=== PATIENT | female | born 1990 | race Two or more races ===

== ENCOUNTER 2016-09-19 22:26 | Inpatient (IN) | payer OTHER ==
[~2016-09-19] VITALS: Ht 162.6 cm; Wt 77.1 kg
[2016-09-19] MEDS ORDERED: NKM (22:43)
[2016-09-19 22:45] VITALS: BP 146/92
[2016-09-19] MEDS ORDERED: HYDROmorphone 1mg/ml Carpuject IVP ONE (23:15)
[2016-09-19 23:30] LABS: MEAN CORPUSCULAR HEMOGLOBIN 31.6 PG (27.0-31.0); MEAN CORPUSCULAR VOLUME 90 FL (80-99); MEAN PLATELET VOLUME 6.7 FL (6.5-10.1); PLATELET COUNT 272 K/UL (150-450); RED BLOOD COUNT 4.74 M/UL (4.20-5.40); RED CELL DISTRIBUTION WIDTH 11.6 % (11.6-14.8); WHITE BLOOD COUNT 21.4 K/UL (4.8-10.8)
--- NOTE | 2016-09-19 23:32 | Emergency Room Report ---
History of Present Illness General Chief Complaint: Abdominal Pain Source: Patient Present Illness HPI Is a 26-year-old female with no past medical history patient present with chief complaint of epigastric arrival quadrant pain. Onset today. Pain is 8/10. Going to her back. Nausea vomiting. No diarrhea. No fever or chills. Denied this problem before. Since giving in November she's been having mid thoracic back pain however his been on and off. No urinary complaint. Allergies: Coded Allergies: No Known Allergies (Unverified , 09/19/16) Patient History Past Medical History: see triage record, old chart reviewed Past Surgical History: , other Pertinent Family History: none Social History: Denies: smoking Last Menstrual Period: 09/18/16 Now: No : 1 Para: 2 Immunizations: other Reviewed Nursing Documentation: PMH: Agreed, PSxH: Agreed Nursing Documentation-PM Past Medical History: No Stated History Review of Systems Eye: Denies: blurred vision, eye pain ENT: Denies: ear pain, nose congestion, throat swelling Respiratory: Denies: cough, shortness of breath Cardiovascular: Denies: chest pain, palpitations Gastrointestinal: Reports: abdominal pain, Denies: diarrhea, nausea, vomiting Musculoskeletal: Denies: back pain, joint pain Skin: Denies: rash Neurological: Denies: headache, numbness Endocrine: Denies: increased thirst, increased urine Hematologic/Lymphatic: Denies: easy bruising All Other Systems: negative except mentioned in HPI Physical Exam Vital Signs Date Time Temp Pulse Resp B/P Pulse Ox O2 Delivery O2 Flow Rate FiO2 09/19/16 22:39 98.2 94 16 146/92 96 Room Air vitals unremarkable Sp02 EP Interpretation: reviewed, normal General Appearance: well appearing, no apparent distress, alert Head: normocephalic, atraumatic Eyes: bilateral eye EOMI, bilateral eye PERRL ENT: hearing grossly normal, normal pharynx Neck: full range of motion, supple, no meningismus Respiratory: chest non-tender, lungs clear, normal breath sounds Cardiovascular #1: regular rate, rhythm, no murmur Gastrointestinal: normal bowel sounds, no mass, no organomegaly, no bruit, non- distended, tenderness - epigastric Musculoskeletal: back normal, gait/station normal, normal range of motion Psychiatric: mood/affect normal Skin: warm/dry Medical Decision Making Diagnostic Impression: Primary Impression: Appendicitis, acute Qualified Codes: K35.80 - Unspecified acute appendicitis Additional Impressions: Hepatic steatosis History of induced ER Course Patient with epigastric arrival quadrant pain. She does have a white count and elevation of LFTs. She may have had biliary colic/cholecystitis. Her urine was negative at 3 minutes but turn positive at 5 minutes. Will check quantitative hCG. Patient was on her way to CT in a call to have her come back. Explained the situation to her. She told me that she was about 4 weeks and took the pill few days ago. She was bleeding heavily but not much now. This probably explain the positive urine test. On recheck, she has no right lower quadrant pain or suprapubic pain. I will hold off on the CT scan and order ultrasound instead. Ultrasound was unremarkable evidence of fatty liver. Because of her white count I went ahead and order CT scan. Her hCG level is 50. This is probably dropping from her . CT scan showed acute appendicitis. Per radiologist , she has a very elongated appendix and it's almost the level of the kidney. This may explain the right upper quadrant pain. Antibiotic started. Surgeon consulted. Patient admitted to Dr. Baig based on insurance. Laboratory Tests Test 09/19/16 23:10 09/19/16 23:20 09/20/16 00:02 Urine Color Pale yellow Urine Appearance Slightly cloudy Urine pH 9 (4.5-8.0) Urine Specific [place] 1.015 (1.005-1.035) Urine Protein Negative (NEGATIVE) Urine Glucose (UA) Negative (NEGATIVE) Urine Ketones 1+ (NEGATIVE) H Urine Occult Blood 4+ (NEGATIVE) H Urine Nitrite Negative (NEGATIVE) Urine Bilirubin Negative (NEGATIVE) Urine Urobilinogen Normal MG/DL (0.0-1.0) Urine Leukocyte Esterase Negative (NEGATIVE) Urine RBC 5-10 /HPF (0 - 2) H Urine WBC 0-2 /HPF (0 - 2) Urine Squamous Epithelial Cells Moderate /LPF (NONE/OCC) H Urine Amorphous Sediment Many /LPF (NONE) H Urine Bacteria Few /HPF (NONE) Urine HCG, Qualitative Negative White Blood Count 21.4 K/UL (4.8-10.8) H Red Blood Count 4.74 M/UL (4.20-5.40) Hemoglobin 15.0 G/DL (12.0-16.0) Hematocrit 42.8 % (37.0-47.0) Mean Corpuscular Volume 90 FL (80-99) Mean Corpuscular Hemoglobin 31.6 PG (27.0-31.0) H Mean Corpuscular Hemoglobin Concent 35.0 G/DL (32.0-36.0) Red Cell Distribution Width 11.6 % (11.6-14.8) Platelet Count 272 K/UL (150-450) Mean Platelet Volume 6.7 FL (6.5-10.1) Neutrophils (%) (Auto) % (45.0-75.0) Lymphocytes (%) (Auto) % (20.0-45.0) Monocytes (%) (Auto) % (1.0-10.0) Eosinophils (%) (Auto) % (0.0-3.0) Basophils (%) (Auto) % (0.0-2.0) Differential Total Cells Counted 100 Neutrophils % (Manual) 89 % (45-75) H Lymphocytes % (Manual) 6 % (20-45) L Monocytes % (Manual) 2 % (1-10) Eosinophils % (Manual) 1 % (0-3) Basophils % (Manual) 0 % (0-2) Band Neutrophils 2 % (0-8) Platelet Estimate Adequate Platelet Morphology Normal Red Blood Cell Morphology Normal Sodium Level 138 mEQ/L (135-145) Potassium Level 3.7 mEQ/L (3.4-4.9) Chloride Level 98 mEQ/L (98-107) Carbon Dioxide Level 21 mEQ/L (20-30) Anion Gap 19 (5-15) H Blood Urea Nitrogen 12 mg/dL (7-23) Creatinine 0.7 mg/dL (0.5-0.9) Estimat Glomerular Filtration Rate > 60 mL/min (>60) Glucose Level 132 mg/dL (74-106) H Calcium Level 9.4 mg/dL (8.6-10.2) Total Bilirubin 1.0 mg/dL (0.0-1.2) Aspartate Amino Transf (AST/SGOT) 81 U/L (5-40) H Alanine Aminotransferase (ALT/SGPT) 92 U/L (3-33) H Alkaline Phosphatase 84 U/L (35-104) Total Protein 8.0 g/dL (6.6-8.7) Albumin 4.4 g/dL (3.5-5.2) Globulin 3.6 g/dL Albumin/Globulin Ratio 1.2 (1.0-2.7) Lipase 29 U/L (< 60) Human Chorionic Gonadotropin, Quant 50 mIU/mL Lab Results Impression labs with leukocytosis CT/MRI/US Diagnostic Results CT/MRI/US Diagnostic Results : Imaging Test Ordered: CT abdomen and pelvis Impression Read by radiologist. Acute appendicitis. No abscess or free air. Marked fatty liver. Abdominal US: Read by smoking pipe coater. Neg Lennon's. GB normal. Fatty liver. Last Vital Signs Date Time Temp Pulse Resp B/P Pulse Ox O2 Delivery O2 Flow Rate FiO2 09/19/16 22:39 98.2 94 16 146/92 96 Room Air Status: improved Disposition: ADMITTED INPATIENT Condition: Serious Referrals: [facility],REFERRING (PCP) SHAY BECKWITH M.D. Sep 19, 2016 23:32
[2016-09-19 23:47] LABS: ALANINE AMINOTRANSFERASE 92 U/L (3-33); ALBUMIN/GLOBULIN RATIO 1.2 (1.0-2.7); ANION GAP 19 (5-15); ASPARTATE AMINO TRANSFERASE 81 U/L (5-40); CALCIUM 9.4 mg/dL (8.6-10.2); CARBON DIOXIDE 21 mEQ/L (20-30); CHLORIDE 98 mEQ/L (98-107); CREATININE 0.7 mg/dL (0.5-0.9); GLOMERULAR FILTRATION RATE > 60 mL/min (>60); HEMOLYSIS 11; LIPASE 29 U/L (< 60); POTASSIUM 3.7 mEQ/L (3.4-4.9); SODIUM 138 mEQ/L (135-145)
[2016-09-19 23:54] LABS: APPEARANCE,URINE SLIGHTLY CLOUDY; KETONES,URINE 1+ (NEGATIVE); LEUKOCYTE ESTERASE ,URINE NEGATIVE (NEGATIVE); NITRITE,URINE NEGATIVE (NEGATIVE); PH,URINE 9 (4.5-8.0); PROTEIN,URINE NEGATIVE (NEGATIVE); UROBILINOGEN,URINE NORMAL MG/DL (0.0-1.0)
[2016-09-20] VITALS (13 sets, daily range): BP systolic 105–143; BP diastolic 57–95
[2016-09-20 00:16] LABS: BACTERIA,URINE FEW /HPF; SQUAMOUS EPITHELIAL CELL,UR MODERATE /LPF (NONE/OCC); WBC,URINE 0-2 /HPF (0 - 2)
[2016-09-20 00:17] LABS: AMORPHOUS SEDIMENT,UR MANY /LPF
[2016-09-20 00:24] LABS: BAND NEUTROPHILS % (MANUAL) 2 % (0-8); BASOPHILS % (MANUAL) 0 % (0-2); EOSINOPHILS % (MANUAL) 1 % (0-3); LYMPHOCYTES % (MANUAL) 6 % (20-45); NEUTROPHILS % (MANUAL) 89 % (45-75); PLATELET ESTIMATE ADEQUATE; PLATELET MORPHOLOGY NORMAL; TOTAL CELLS COUNTED 100
[2016-09-20] MEDS ORDERED: Piperacillin/Tazobactam 3.375 GM in NS 110 ML IVPB ONE (03:15)
[2016-09-20] MEDS ORDERED: Zosyn 3.375gm inj ONE (03:18)
--- NOTE | 2016-09-20 06:56 | General Progress Note ---
Progress Note Progress Note Consult dictated #[id number], pt has acute appendicitis, retrocecal on CT. She also has residua of an induced chemical on 09-13-16. We will proceed with a laparoscopic appendectomy, possible open appendectomy this AM. The nature,risks , and benefits were explained. Mario Rucker MD Sep 20, 2016 06:56
[2016-09-20 07:17] LABS: PROTHROMBIN TIME 10.1 SEC (9.30-11.50)
[2016-09-20] MEDS ORDERED: Bupivacaine w/Epi 0.5% 30ml Vial INJ ONE (08:06)
[2016-09-20] MEDS ORDERED: Bacitracin 50000 Units Vial ONE (08:06)
[2016-09-20] MEDS ORDERED: Propofol 10mg/ml 20ml IV ONE ×2 (08:06→08:30)
[2016-09-20] MEDS ORDERED: Neostigmine 1mg/ml 10ml Inj ONE (08:30)
[2016-09-20] MEDS ORDERED: Zemuron 50mg/5ml Inj IV ONE (08:30)
[2016-09-20] MEDS ORDERED: Midazolam 2mg/2ml Inj ONE (08:30)
[2016-09-20] MEDS ORDERED: LR 1000ml ONE (08:30)
[2016-09-20] MEDS ORDERED: Ketorolac 30mg Inj ONE (08:30)
[2016-09-20] MEDS ORDERED: NS Irrig 2000ml IRRIG ONE ×2 (08:30→08:56)
[2016-09-20] MEDS ORDERED: Sterile Water Irrig 1000ml IRRIG ONE (08:30)
[2016-09-20] MEDS ORDERED: fentaNYL 100 mcg/2 mL IV ONE (08:30)
[2016-09-20] MEDS ORDERED: Glycopyrrolate 0.2mg/ml 1ml Vial ONE (08:30)
--- NOTE | 2016-09-20 08:31 | Pre-Procedure Note/Attestation ---
Pre-Procedure Note/Attestation Complete Prior to Procedure Planned Procedure: not applicable Procedure Narrative: laparoscopic appendectomy, possible open appendectomy Indications for Procedure Pre-Operative Diagnosis: acute appendicitis Attestation I attest that I discussed the nature of the procedure; its benefits; risks and complications; and alternatives (and the risks and benefits of such alternatives ), prior to the procedure, with the patient (or the patient's legal car sales representative). I attest that, if there was a reasonable possibility of needing a blood transfusion, the patient (or the patient's legal car sales representative) was given the [facility] standardized written summary, pursuant to the [place] Blood Safety Act ([place] Health and Safety Code # 1645, as amended). I attest that I re-evaluated the patient just prior to the surgery and that there has been no change in the patient's H&P, except as documented below:none Mario Rucker MD Sep 20, 2016 08:31
[2016-09-20] MEDS ORDERED: LORazepam Inj 2mg/ml 1ml IV PRN (08:45)
[2016-09-20] MEDS ORDERED: Miralax 17gm pkt ORAL PRN (08:45)
[2016-09-20] MEDS ORDERED: Nitroglycerin Subl 0.4mg tab (Bottle Of 25) SL PRN (08:45)
[2016-09-20] MEDS ORDERED: Metoclopramide 10mg/2ml Inj IVP PRN ×2 (08:45→09:15)
[2016-09-20] MEDS ORDERED: Mylanta II UD 30ml ORAL PRN (08:45)
[2016-09-20] MEDS ORDERED: LR 1000ml 1,000 ML IVLG SCH (09:04)
--- NOTE | 2016-09-20 09:04 | Anethesia Preoperative Eval ---
Anesthesia Pre-op PMH/ROS General Date of Evaluation: Sep 20, 2016 Time of Evaluation: 08:15 Anesthesiologist: Nat ASA Score: ASA 2 Mallampati Score Class I : Soft palate, uvula, fauces, pillars visible Class II: Soft palate, uvula, fauces visible Class III: Soft palate, base of uvula visible Class IV: Only hard plate visible Mallampati Classification: Class II Surgeon: Chaim Diagnosis: Acute appendicitis Surgical Procedure: Laparocopic apendectomy Anesthesia History: none Family History: no anesthesia problems Allergies: Coded Allergies: No Known Allergies (Unverified , 09/19/16) Past Medical History Cardiovascular: Denies: CAD, HTN, NC, arrhythmia, other, valve dz Pulmonary: Denies: COPD, DEBBY, asthma, other Gastrointestinal/Genitourinary: Denies: CRI, ESRD, GERD, other Neurologic/Psychiatric: Denies: CVA, TIA, dementia, depression/anxiety, other Endocrine: Denies: DM, hypothyroidism, other, steroids HEENT: Denies: HABEMATOLEL (L), HABEMATOLEL (R), cataract (L), cataract (R), glaucoma, other Hematology/Immune: Denies: DVT, anemia, bleeding disorder, other Musculoskeletal/Integumentary: Denies: DDD, DJD, OA, RA, edema, other Other: other - overweight PMH Narrative: as above admitted for acute abdominal pain N/V PSxH Narrative: C section Anesthesia Pre-op Phys. Exam Physician Exam Last Vital Signs Date Time Temp Pulse Resp B/P Pulse Ox O2 Delivery O2 Flow Rate FiO2 09/20/16 08:00 98.2 100 20 130/71 95 Room Air Constitutional: NAD Neurologic: CN 2-12 intact Cardiovascular: RRR, no M/R/G Respiratory: CTA Gastrointestinal: other - some tenderness Airway Exam Mallampati Score: Class II MO: full Neck: flexible ROM: full Teeth: intact Dentures: no lower, no upper Anesthesia Pre-op A/P Labs Hematology Test 09/19/16 23:20 White Blood Count 21.4 K/UL (4.8-10.8) H Red Blood Count 4.74 M/UL (4.20-5.40) Hemoglobin 15.0 G/DL (12.0-16.0) Hematocrit 42.8 % (37.0-47.0) Mean Corpuscular Volume 90 FL (80-99) Mean Corpuscular Hemoglobin 31.6 PG (27.0-31.0) H Mean Corpuscular Hemoglobin Concent 35.0 G/DL (32.0-36.0) Red Cell Distribution Width 11.6 % (11.6-14.8) Platelet Count 272 K/UL (150-450) Mean Platelet Volume 6.7 FL (6.5-10.1) Neutrophils (%) (Auto) % (45.0-75.0) Lymphocytes (%) (Auto) % (20.0-45.0) Monocytes (%) (Auto) % (1.0-10.0) Eosinophils (%) (Auto) % (0.0-3.0) Basophils (%) (Auto) % (0.0-2.0) Differential Total Cells Counted 100 Neutrophils % (Manual) 89 % (45-75) H Lymphocytes % (Manual) 6 % (20-45) L Monocytes % (Manual) 2 % (1-10) Eosinophils % (Manual) 1 % (0-3) Basophils % (Manual) 0 % (0-2) Band Neutrophils 2 % (0-8) Platelet Estimate Adequate Platelet Morphology Normal Red Blood Cell Morphology Normal Coagulation Test 09/20/16 06:40 Prothrombin Time 10.1 SEC (9.30-11.50) Prothromb Time International Ratio 1.0 (0.9-1.1) Activated Partial Thromboplast Time 28 SEC (23-33) Chemistry Test 09/19/16 23:20 09/20/16 00:02 Sodium Level 138 mEQ/L (135-145) Potassium Level 3.7 mEQ/L (3.4-4.9) Chloride Level 98 mEQ/L (98-107) Carbon Dioxide Level 21 mEQ/L (20-30) Anion Gap 19 (5-15) H Blood Urea Nitrogen 12 mg/dL (7-23) Creatinine 0.7 mg/dL (0.5-0.9) Estimat Glomerular Filtration Rate > 60 mL/min (>60) Glucose Level 132 mg/dL (74-106) H Calcium Level 9.4 mg/dL (8.6-10.2) Total Bilirubin 1.0 mg/dL (0.0-1.2) Aspartate Amino Transf (AST/SGOT) 81 U/L (5-40) H Alanine Aminotransferase (ALT/SGPT) 92 U/L (3-33) H Alkaline Phosphatase 84 U/L (35-104) Total Protein 8.0 g/dL (6.6-8.7) Albumin 4.4 g/dL (3.5-5.2) Globulin 3.6 g/dL Albumin/Globulin Ratio 1.2 (1.0-2.7) Lipase 29 U/L (< 60) Human Chorionic Gonadotropin, Quant 50 mIU/mL Urine Test Test 09/19/16 23:10 Urine HCG, Qualitative Negative Studies Pre-op Studies: EKG - NSR Risk Assessment & Plan Assessment: ASA 2 E Plan: GA with ETT PONV prevention Status Change Before Surgery: No Pre-Antibiotics Drug: Ancef 1 gr Given Within 1 Hr of Incision: Yes Time Given: 08:36 JULIA VICTOR M.D. Sep 20, 2016 09:04
[2016-09-20] MEDS: Heparin 5000 units/ml inj SUBQ SCH ×2 (09:13→21:00)
[2016-09-20] MEDS ORDERED: DiphenhydrAMINE 50mg/ml Inj IVP PRN (09:15)
[2016-09-20] MEDS ORDERED: Midazolam 2mg/2ml Inj IVP PRN (09:15)
[2016-09-20] MEDS ORDERED: Meperidine 25mg/0.5ml Inj IV PRN (09:15)
[2016-09-20] MEDS ORDERED: Hydromorphone 0.5mg/0.5ml inj IVP PRN (09:15)
[2016-09-20] MEDS ORDERED: Ketorolac 30mg Inj IV PRN (09:15)
--- NOTE | 2016-09-20 09:37 | Brief Operative Note ---
Immediate Post Operative Note Operative Note Pre-op Diagnosis: acute appendicitis Procedure: laparoscopic appendectomy Post-op Diagnosis: early appendicitis, liver swelling Post-op Diagnosis: same as pre-op plus - blunting of liver edge and liver swelling Surgeon: Quincy Rucker MD Steel Fitter: Je Avalos MD Anesthesiologist: Gi Johns MD Anesthesia: general Specimen: yes Complications: none Condition: stable Estimated Blood Loss: minimal Drains: none Implant(s) used?: No Mario Rucker MD Sep 20, 2016 09:36
--- NOTE | 2016-09-20 09:43 | Immediate Post-Op Evaluation ---
Immediate Post-Op Evalulation Immediate Post-Op Evalulation Procedure: Laparoscopic appendectomy Date of Evaluation: Sep 20, 2016 Time of Evaluation: 09:42 IV Fluids: 900 Blood Products: none Estimated Blood Loss: min Urinary Output: 100 Blood Pressure Systolic: 106 Blood Pressure Diastolic: 65 Pulse Rate: 84 Respiratory Rate: 20 O2 Sat by Pulse Oximetry: 99 Temperature (Fahrenheit): 97.5 Pain Score (1-10): 1 Nausea: No Vomiting: No Complications none Patient Status: reacts, patent, extubated, none Hydration Status: adequate JULIA VICTOR M.D. Sep 20, 2016 09:43
--- NOTE | 2016-09-20 10:24 | Diagnostic Imaging Report ---
Indication: Abdominal pain Technique: Continuous helical transaxial imaging of the abdomen and pelvis was obtained from the lung bases to the pubic symphysis during intravenous contrast administration. Coronal 2-D reformats were also obtained. Study obtained in a Siemens sensation [address] Total Dose length Product (DLP): [address] Dose Index Volume (CTDIvol): 18 mGy Comparison: None Findings: The appendix is dilated and there is periappendiceal inflammation. There is wall thickening. Findings consistent with acute appendicitis. No evidence of abscess. Trace free fluid noted within the pelvis. Lung bases are clear. The liver is diffusely hypodense consistent with fatty infiltration. The kidneys, spleen and pancreas are unremarkable. Gallbladder is unremarkable. No evidence of bowel obstruction. Bladder is unremarkable. No hydronephrosis demonstrated. Impression: Acute appendicitis. Fatty liver The CT scanner at [facility] is accredited by the [employer] [employer] and the scans are performed using dose optimization techniques as appropriate to a performed exam including Automatic Exposure control.
--- NOTE | 2016-09-20 10:31 | Consultation ---
DATE OF CONSULTATION: 09/20/2016 SURGICAL CONSULTATION CONSULTING PHYSICIAN: Mario Rucker M.D. REASON FOR CONSULTATION: Abdominal pain, and appendicitis. HISTORY OF PRESENT ILLNESS: This 26-year-old, 2, para 1, AB 1, female. She presented with the onset of epigastric pain radiating to the back. Yesterday afternoon, she reported some nausea, but no vomiting. She denied any symptoms of diarrhea. She denied any symptoms of fever or chills or dysuria. PAST MEDICAL HISTORY: Previous surgery section November of 2014 for delivery of twin. MEDICATIONS: None. ALLERGIES: None known. SOCIAL HISTORY: Tobacco, none. Alcohol, none. FAMILY HISTORY: Positive for diabetes in her maternal aunt. REVIEW OF SYSTEMS: Essentially negative. She does report some history of migraine headaches. There is no history of angina. She denies any history of asthma. There is no history of peptic ulcer disease. No hepatitis. The patient states she took some pills to induce eight days ago. She is currently on her menstrual period. PHYSICAL EXAMINATION: GENERAL: Reveals a well-developed and well-nourished female in no acute distress. VITAL SIGNS: Temperature 99.0 degrees, blood pressure 127/65, pulse 105, and respirations 20. HEENT: Normocephalic. Pupils were equal and reactive to light. There was no scleral icterus. NECK: Supple without adenopathy. LUNGS: Clear. HEART: Showed a regular rhythm. ABDOMEN: Abdomen was flat. There was mild tenderness in the epigastric region and the right upper quadrant as well as the right mid abdomen. There is a healed Pfannenstiel scar. EXTREMITIES: Showed no clubbing, cyanosis, or edema. LABORATORY AND DIAGNOSTIC DATA: An ultrasound of the abdomen showed no abnormalities in the gall bladder. A CT scan of the abdomen showed evidence of appendicitis with a retrocecal appendix extending to near the right kidney. Laboratory studies, CBC showed a white blood count 21,400, hemoglobin 15 grams percent, hematocrit 42.8%, and platelet count 272,000. Clinical chemistry showed a sodium of 138, potassium 3.7, chloride 98, bicarbonate 21, BUN 12, creatinine 0.7, and glucose 132. SGOT was elevated at 92, SGPT was elevated to 81, and alkaline phosphatase normal at 84. Total bilirubin 1.0 and quantitative HCG was 50. IMPRESSION: 1. Acute appendicitis. 2. Recent chemically induced . PLAN: We will take the patient to the operating room for a laparoscopic appendectomy possible open appendectomy. The nature, risks and benefits of the procedure were explained. We will check a PT and PTT prior to the procedure. Mario Rucker M.D. DR: Chanell JOB#: [id number] CC:
[2016-09-20] MEDS: Morphine Sulfate 2mg/ml Inj IVP PRN ×3 (11:06→20:22)
[2016-09-20] MEDS: Pantoprazole Inj IV SCH (11:06)
[2016-09-20] MEDS: D5 1/2NS w/KCl 20mEq 1,000 ML IV SCH ×2 (11:39→20:57)
--- NOTE | 2016-09-20 12:04 | 48 Hour Post Anesthesia Eval ---
Post Anesthesia Evaluation Procedure: Laparoscopic appendectomy Date of Evaluation: Sep 20, 2016 Time of Evaluation: 12:02 Blood Pressure Systolic: 116 0: 72 Pulse Rate: 78 Respiratory Rate: 20 Temperature (Fahrenheit): 97.6 O2 Sat by Pulse Oximetry: 98 Airway: patent Nausea: No Vomiting: No Pain Intensity: 3 Hydration Status: adequate Cardiopulmonary Status: stable Mental Status/LOC: patient returned to baseline Follow-up Care/Observations: n/a Post-Anesthesia Complications: none Follow-up care needed: N/A JULAI VICTOR M.D. Sep 20, 2016 12:04
--- NOTE | 2016-09-20 12:45 | Consultation ---
History of Present Illness General Chief Complaint: Abdominal Pain Present Illness Allergies: Coded Allergies: No Known Allergies (Unverified , 09/19/16) Medication History Scheduled No Known Medications* (NKM - No Known Medications*), 0 ., (Reported) Patient History Healthcare decision maker Resuscitation status Full Code Advanced Directive on File Physical Exam Last 24 Hour Vital Signs Date Time Temp Pulse Resp B/P Pulse Ox O2 Delivery O2 Flow Rate FiO2 09/20/16 12:04 78 20 98 09/20/16 10:38 97.6 88 16 130/84 100 Room Air 09/20/16 10:30 85 18 131/83 98 Room Air 09/20/16 10:15 88 18 125/75 96 Room Air 09/20/16 10:00 86 20 122/77 98 Room Air 09/20/16 09:45 81 18 105/65 100 Simple Mask 6.0 09/20/16 09:43 84 20 99 09/20/16 09:40 97.0 83 17 114/74 100 Simple Mask 6.0 09/20/16 08:00 98.2 100 20 130/71 95 Room Air 09/20/16 04:50 99.0 105 20 127/65 97 Room Air 09/20/16 04:45 99.0 105 20 127/65 97 Room Air 09/20/16 02:45 99.0 104 19 143/78 96 Room Air 09/20/16 00:45 99.0 99 18 124/74 94 Room Air 09/20/16 00:06 98.2 09/19/16 22:45 98.2 94 16 146/92 96 Room Air 09/19/16 22:39 98.2 94 16 146/92 96 Room Air Intake and Output 09/19/16 09/20/16 18:59 06:59 Intake Total 1100 ml Balance 1100 ml IV Total 1100 ml # Voids 2 Laboratory Tests Test 09/19/16 23:10 09/19/16 23:20 09/20/16 00:02 09/20/16 06:40 Urine Color Pale yellow Urine Appearance Slightly cloudy Urine pH 9 (4.5-8.0) Urine Specific [place] 1.015 (1.005-1.035) Urine Protein Negative (NEGATIVE) Urine Glucose (UA) Negative (NEGATIVE) Urine Ketones 1+ (NEGATIVE) H Urine Occult Blood 4+ (NEGATIVE) H Urine Nitrite Negative (NEGATIVE) Urine Bilirubin Negative (NEGATIVE) Urine Urobilinogen Normal MG/DL (0.0-1.0) Urine Leukocyte Esterase Negative (NEGATIVE) Urine RBC 5-10 /HPF (0 - 2) H Urine WBC 0-2 /HPF (0 - 2) Urine Squamous Epithelial Cells Moderate /LPF (NONE/OCC) H Urine Amorphous Sediment Many /LPF (NONE) H Urine Bacteria Few /HPF (NONE) Urine HCG, Qualitative Negative White Blood Count 21.4 K/UL (4.8-10.8) H Red Blood Count 4.74 M/UL (4.20-5.40) Hemoglobin 15.0 G/DL (12.0-16.0) Hematocrit 42.8 % (37.0-47.0) Mean Corpuscular Volume 90 FL (80-99) Mean Corpuscular Hemoglobin 31.6 PG (27.0-31.0) H Mean Corpuscular Hemoglobin Concent 35.0 G/DL (32.0-36.0) Red Cell Distribution Width 11.6 % (11.6-14.8) Platelet Count 272 K/UL (150-450) Mean Platelet Volume 6.7 FL (6.5-10.1) Neutrophils (%) (Auto) % (45.0-75.0) Lymphocytes (%) (Auto) % (20.0-45.0) Monocytes (%) (Auto) % (1.0-10.0) Eosinophils (%) (Auto) % (0.0-3.0) Basophils (%) (Auto) % (0.0-2.0) Differential Total Cells Counted 100 Neutrophils % (Manual) 89 % (45-75) H Lymphocytes % (Manual) 6 % (20-45) L Monocytes % (Manual) 2 % (1-10) Eosinophils % (Manual) 1 % (0-3) Basophils % (Manual) 0 % (0-2) Band Neutrophils 2 % (0-8) Platelet Estimate Adequate Platelet Morphology Normal Red Blood Cell Morphology Normal Sodium Level 138 mEQ/L (135-145) Potassium Level 3.7 mEQ/L (3.4-4.9) Chloride Level 98 mEQ/L (98-107) Carbon Dioxide Level 21 mEQ/L (20-30) Anion Gap 19 (5-15) H Blood Urea Nitrogen 12 mg/dL (7-23) Creatinine 0.7 mg/dL (0.5-0.9) Estimat Glomerular Filtration Rate > 60 mL/min (>60) Glucose Level 132 mg/dL (74-106) H Calcium Level 9.4 mg/dL (8.6-10.2) Total Bilirubin 1.0 mg/dL (0.0-1.2) Aspartate Amino Transf (AST/SGOT) 81 U/L (5-40) H Alanine Aminotransferase (ALT/SGPT) 92 U/L (3-33) H Alkaline Phosphatase 84 U/L (35-104) Total Protein 8.0 g/dL (6.6-8.7) Albumin 4.4 g/dL (3.5-5.2) Globulin 3.6 g/dL Albumin/Globulin Ratio 1.2 (1.0-2.7) Lipase 29 U/L (< 60) Human Chorionic Gonadotropin, Quant 50 mIU/mL Prothrombin Time 10.1 SEC (9.30-11.50) Prothromb Time International Ratio 1.0 (0.9-1.1) Activated Partial Thromboplast Time 28 SEC (23-33) Height (Feet): 5 Height (Inches): 4.00 Weight (Pounds): 170 Medications Current Medications Medications (Trade) Dose Ordered Sig/Marty Route PRN Reason Start Time Stop Time Status Last Admin Dose Admin Acetaminophen (Tylenol) 650 mg Q4H PRN ORAL fever 09/20/16 08:45 10/20/16 08:44 Al Hydroxide/Mg Hydroxide (Mylanta II) 30 ml Q6H PRN ORAL dyspepsia 09/20/16 08:45 10/20/16 08:44 Dextrose (Dextrose 50%) STAT PRN IV Hypoglycemia 09/20/16 08:45 10/20/16 08:44 Dextrose/ Electrolytes (D5 0.45%NS W/ KCl 20mEq) 1,000 ml @ 100 mls/hr Q10H IV 09/20/16 11:00 10/20/16 10:59 09/20/16 11:39 Diphenhydramine HCl (Benadryl) 25 mg Q15M PRN IVP Itching 09/20/16 09:15 09/20/16 23:59 Diphenhydramine HCl (Benadryl) 25 mg Q6H PRN ORAL Itching/Pruritis 09/20/16 08:45 10/20/16 08:44 Heparin Sodium (Porcine) (Heparin 5000 units/ml) 5,000 units EVERY 12 HOURS SUBQ 09/20/16 09:30 10/20/16 09:29 Hydromorphone HCl (Dilaudid) 0.5 mg Q15M PRN IVP Severe Pain (Pain Scale 7-10) 09/20/16 09:15 09/20/16 23:59 Lorazepam (Ativan 2mg/ml 1ml) 1 mg EVERY 4 HOURS PRN IV agitation 09/20/16 08:45 09/27/16 08:44 Meperidine HCl 25 mg 25 mg Q15M PRN IV Shivering 09/20/16 09:15 09/20/16 23:59 Metoclopramide HCl (Reglan) 10 mg EVERY 6 HOURS PRN IVP servere nauasea 09/20/16 08:45 10/20/16 08:44 Metoclopramide HCl (Reglan) 10 mg Q1H PRN IVP Nausea & Vomiting 09/20/16 09:15 09/20/16 23:59 Midazolam HCl (Versed 2mg/2ml vial) 1 mg Q15M PRN IVP For Anxiety 09/20/16 09:15 09/20/16 23:59 Morphine Sulfate (Morphine Sulfate) 2 mg EVERY 4 HOURS PRN IVP severe Pain (Pain Scale 7-10) 09/20/16 08:45 09/27/16 08:44 09/20/16 11:06 Nitroglycerin (Ntg) 0.4 mg Q5M X 3 DOSES PRN SL Prn Chest Pain 09/20/16 08:45 10/20/16 08:44 Ondansetron HCl (Zofran) 4 mg Q6H PRN IVP Nausea & Vomiting 09/20/16 08:45 10/20/16 08:44 Pantoprazole (Protonix) 40 mg DAILY IV 09/20/16 09:30 10/20/16 09:29 09/20/16 11:06 Polyethylene Glycol (Miralax) 17 gm HSPRN PRN ORAL Constipation 09/20/16 08:45 10/20/16 08:44 Sodium Chloride (Sodium Chloride 1000ml bag) 1,000 ml @ 150 mls/hr Q6H40M IV 09/20/16 07:30 10/20/16 07:29 09/20/16 08:05 Temazepam (Restoril) 15 mg HSPRN PRN ORAL Insomnia 09/20/16 08:45 09/27/16 08:44 Hector (Sonam Seymour NP Sep 20, 2016 12:45
--- NOTE | 2016-09-20 12:47 | Operative Note - Dictated ---
DATE OF OPERATION: 09/20/2016 PREOPERATIVE DIAGNOSIS: Acute appendicitis. POSTOPERATIVE DIAGNOSIS: Acute appendicitis plus hepatic steatosis. PROCEDURE: Laparoscopic appendectomy. SURGEON: Kurt Rucker M.D. PRESSURIZER: Dr. Maikol Avalos. ANESTHESIA: General endotracheal. ANESTHESIOLOGIST: Tristian Johns M.D. INDICATIONS FOR SURGERY: This 26-year-old, female, presented with a one-day history of upper abdominal pain radiating to the back. She had a low-grade fever and a leukocytosis of 21,000. A CT scan taken from the operating room, revealed an enlarged retrocecal appendix with the tip of the appendix near the right kidney. Her blood work also showed slight elevation of her transaminases. She is not jaundiced. She was advised to undergo a laparoscopic appendectomy possible open appendectomy. The nature, risks and benefits of the procedure were explained. OPERATIVE FINDINGS: Exploration of the abdominal cavity revealed no ascites. The appendix was retrocecal as described in the CAT scan. There was mild swelling at the tip of the appendix and no abnormalities are noted on the terminal ileum. There was some scar tissue in the pelvis from a previous sections. The uterus was slightly enlarged. The liver edge was blunted and the liver showed some elements of swelling. The gallbladder had a pliable wall. There was no ascites. OPERATIVE TECHNIQUE: With the patient in the supine position after induction of adequate general anesthesia, the abdomen was prepped and draped in a sterile fashion. A time-out was called. A small transverse incision was made just above the umbilicus. A Veress needle was introduced into the abdominal cavity. The intraperitoneal position was confirmed by saline instillation and the drop test. The abdomen was insufflated with four liters of carbon dioxide. The Veress needle was removed. The puncture site was slightly enlarged and a 5 mm trocar was introduced. After inspection of the abdomen with a 5 mm 30 degree angled laparoscope. A second 5 mm trocar was introduced in the subxiphoid region slightly to the left of the midline. A 12 mm trocar was introduced in the left lower quadrant. The cecum was carefully mobilized medially revealing the appendix and the appendix was grasped and brought up into the wound. A small window was made in the mesoappendix. The Endo-JACY stapler was placed across the base of the appendix and fired. The mesoappendix was then dissected removing some of the fatty serosal surface. The vascular Endo-JACY was placed across the mesoappendix and fired. The appendix was placed in an EndoCatch apparatus and brought out through the 12 mm port site. The cecal area was inspected there was no evidence of hemorrhage. The right pericolic gutter was irrigated and aspirated. The pelvis was inspected some serous sanguinous fluid was aspirated. The trocars were removed under laparoscopic visualization there was no evidence of hemorrhage. The pneumoperitoneum was reversed. The left lower quadrant trocar site was closed with 0 Vicryl fascial suture followed by a 4-0 Vicryl subcutaneous suture. The skin was closed with a running 4-0 Vicryl subcuticular stitch. The two remaining 5 mm puncture wounds were closed with interrupted 4-0 Vicryl subcuticular sutures. The puncture wounds were injected with 0.25 Marcaine with epinephrine solution. Sterile dressings were applied. The patient tolerated the procedure well and was returned to the recovery room in stable condition. The estimated blood loss was 5 mL. Mario Rucker M.D. DR: Chanell JOB#: [id number] CC:
--- NOTE | 2016-09-20 12:57 | History and Physical ---
History of Present Illness General Date patient seen: Sep 20, 2016 Time patient seen: 12:00 Reason for Hospitalization: Abdominal Pain Present Illness HPI 26-year-old female with no past medical history presented with chief complaint of epigastric abdominal pain. Onset x 1 day. Pain was 8/10, radiating to back. admitted to nausea vomiting. no diarrhea. denied fevers or chills. no urinary complaint. recent hx of chemically induced 09/13 Lab work revealed WBC -21.4 AST-81 and ALT-92 CT abdomen and pelvis revealed Acute appendicitis. Fatty liver Patient was admitted for further management s/p lap appy earlier this am currently awake, alert, c/o pain Allergies: Coded Allergies: No Known Allergies (Unverified , 09/19/16) Medication History Scheduled No Known Medications* (NKM - No Known Medications*), 0 ., (Reported) Patient History History Provided By: Patient Healthcare decision maker Resuscitation status Full Code Advanced Directive on File Review of Systems Constitutional: Reports: malaise, weakness Eye: Reports: no symptoms ENT: Reports: no symptoms Respiratory: Reports: no symptoms Cardiovascular: Reports: no symptoms Gastrointestinal: Reports: see HPI Genitourinary: Reports: no symptoms Musculoskeletal: Reports: no symptoms Skin: Reports: no symptoms Psychiatric: Reports: no symptoms Neurological: Reports: no symptoms Endocrine: Reports: no symptoms Hematologic/Lymphatic: Reports: no symptoms Physical Exam General Appearance: WD/WN, no apparent distress, alert Lines, tubes and drains: peripheral HEENT: normocephalic, atraumatic, anicteric, mucous membranes moist Neck: non-tender, supple, normal inspection Respiratory/Chest: lungs clear, no respiratory distress, no accessory muscle use Cardiovascular/Chest: normal rate, regular rhythm Abdomen: normal bowel sounds, soft - 3 small surg incision with gauze, clean, no drainage, no edema Neurologic: no motor/sensory deficits, alert, oriented x 3, responsive Last 24 Hour Vital Signs Date Time Temp Pulse Resp B/P Pulse Ox O2 Delivery O2 Flow Rate FiO2 09/20/16 12:04 78 20 98 09/20/16 10:38 97.6 88 16 130/84 100 Room Air 09/20/16 10:30 85 18 131/83 98 Room Air 09/20/16 10:15 88 18 125/75 96 Room Air 09/20/16 10:00 86 20 122/77 98 Room Air 09/20/16 09:45 81 18 105/65 100 Simple Mask 6.0 09/20/16 09:43 84 20 99 09/20/16 09:40 97.0 83 17 114/74 100 Simple Mask 6.0 09/20/16 08:00 98.2 100 20 130/71 95 Room Air 09/20/16 04:50 99.0 105 20 127/65 97 Room Air 09/20/16 04:45 99.0 105 20 127/65 97 Room Air 09/20/16 02:45 99.0 104 19 143/78 96 Room Air 09/20/16 00:45 99.0 99 18 124/74 94 Room Air 09/20/16 00:06 98.2 09/19/16 22:45 98.2 94 16 146/92 96 Room Air 09/19/16 22:39 98.2 94 16 146/92 96 Room Air Intake and Output 09/19/16 09/20/16 18:59 06:59 Intake Total 1100 ml Balance 1100 ml IV Total 1100 ml # Voids 2 Laboratory Tests Test 09/19/16 23:10 09/19/16 23:20 09/20/16 00:02 09/20/16 06:40 Urine Color Pale yellow Urine Appearance Slightly cloudy Urine pH 9 (4.5-8.0) Urine Specific Bruner 1.015 (1.005-1.035) Urine Protein Negative (NEGATIVE) Urine Glucose (UA) Negative (NEGATIVE) Urine Ketones 1+ (NEGATIVE) H Urine Occult Blood 4+ (NEGATIVE) H Urine Nitrite Negative (NEGATIVE) Urine Bilirubin Negative (NEGATIVE) Urine Urobilinogen Normal MG/DL (0.0-1.0) Urine Leukocyte Esterase Negative (NEGATIVE) Urine RBC 5-10 /HPF (0 - 2) H Urine WBC 0-2 /HPF (0 - 2) Urine Squamous Epithelial Cells Moderate /LPF (NONE/OCC) H Urine Amorphous Sediment Many /LPF (NONE) H Urine Bacteria Few /HPF (NONE) Urine HCG, Qualitative Negative White Blood Count 21.4 K/UL (4.8-10.8) H Red Blood Count 4.74 M/UL (4.20-5.40) Hemoglobin 15.0 G/DL (12.0-16.0) Hematocrit 42.8 % (37.0-47.0) Mean Corpuscular Volume 90 FL (80-99) Mean Corpuscular Hemoglobin 31.6 PG (27.0-31.0) H Mean Corpuscular Hemoglobin Concent 35.0 G/DL (32.0-36.0) Red Cell Distribution Width 11.6 % (11.6-14.8) Platelet Count 272 K/UL (150-450) Mean Platelet Volume 6.7 FL (6.5-10.1) Neutrophils (%) (Auto) % (45.0-75.0) Lymphocytes (%) (Auto) % (20.0-45.0) Monocytes (%) (Auto) % (1.0-10.0) Eosinophils (%) (Auto) % (0.0-3.0) Basophils (%) (Auto) % (0.0-2.0) Differential Total Cells Counted 100 Neutrophils % (Manual) 89 % (45-75) H Lymphocytes % (Manual) 6 % (20-45) L Monocytes % (Manual) 2 % (1-10) Eosinophils % (Manual) 1 % (0-3) Basophils % (Manual) 0 % (0-2) Band Neutrophils 2 % (0-8) Platelet Estimate Adequate Platelet Morphology Normal Red Blood Cell Morphology Normal Sodium Level 138 mEQ/L (135-145) Potassium Level 3.7 mEQ/L (3.4-4.9) Chloride Level 98 mEQ/L (98-107) Carbon Dioxide Level 21 mEQ/L (20-30) Anion Gap 19 (5-15) H Blood Urea Nitrogen 12 mg/dL (7-23) Creatinine 0.7 mg/dL (0.5-0.9) Estimat Glomerular Filtration Rate > 60 mL/min (>60) Glucose Level 132 mg/dL (74-106) H Calcium Level 9.4 mg/dL (8.6-10.2) Total Bilirubin 1.0 mg/dL (0.0-1.2) Aspartate Amino Transf (AST/SGOT) 81 U/L (5-40) H Alanine Aminotransferase (ALT/SGPT) 92 U/L (3-33) H Alkaline Phosphatase 84 U/L (35-104) Total Protein 8.0 g/dL (6.6-8.7) Albumin 4.4 g/dL (3.5-5.2) Globulin 3.6 g/dL Albumin/Globulin Ratio 1.2 (1.0-2.7) Lipase 29 U/L (< 60) Human Chorionic Gonadotropin, Quant 50 mIU/mL Prothrombin Time 10.1 SEC (9.30-11.50) Prothromb Time International Ratio 1.0 (0.9-1.1) Activated Partial Thromboplast Time 28 SEC (23-33) Height (Feet): 5 Height (Inches): 4.00 Weight (Pounds): 170 Medications Current Medications Medications (Trade) Dose Ordered Sig/Marty Route PRN Reason Start Time Stop Time Status Last Admin Dose Admin Acetaminophen (Tylenol) 650 mg Q4H PRN ORAL fever 09/20/16 08:45 10/20/16 08:44 Al Hydroxide/Mg Hydroxide (Mylanta II) 30 ml Q6H PRN ORAL dyspepsia 09/20/16 08:45 10/20/16 08:44 Dextrose (Dextrose 50%) STAT PRN IV Hypoglycemia 09/20/16 08:45 10/20/16 08:44 Dextrose/ Electrolytes (D5 0.45%NS W/ KCl 20mEq) 1,000 ml @ 100 mls/hr Q10H IV 09/20/16 11:00 10/20/16 10:59 09/20/16 11:39 Diphenhydramine HCl (Benadryl) 25 mg Q15M PRN IVP Itching 09/20/16 09:15 09/20/16 23:59 Diphenhydramine HCl (Benadryl) 25 mg Q6H PRN ORAL Itching/Pruritis 09/20/16 08:45 10/20/16 08:44 Heparin Sodium (Porcine) (Heparin 5000 units/ml) 5,000 units EVERY 12 HOURS SUBQ 09/20/16 09:30 10/20/16 09:29 Hydromorphone HCl (Dilaudid) 0.5 mg Q15M PRN IVP Severe Pain (Pain Scale 7-10) 09/20/16 09:15 09/20/16 23:59 Lorazepam (Ativan 2mg/ml 1ml) 1 mg EVERY 4 HOURS PRN IV agitation 09/20/16 08:45 09/27/16 08:44 Meperidine HCl 25 mg 25 mg Q15M PRN IV Shivering 09/20/16 09:15 09/20/16 23:59 Metoclopramide HCl (Reglan) 10 mg EVERY 6 HOURS PRN IVP kendra conna 09/20/16 08:45 10/20/16 08:44 Metoclopramide HCl (Reglan) 10 mg Q1H PRN IVP Nausea & Vomiting 09/20/16 09:15 09/20/16 23:59 Midazolam HCl (Versed 2mg/2ml vial) 1 mg Q15M PRN IVP For Anxiety 09/20/16 09:15 09/20/16 23:59 Morphine Sulfate (Morphine Sulfate) 2 mg EVERY 4 HOURS PRN IVP severe Pain (Pain Scale 7-10) 09/20/16 08:45 09/27/16 08:44 09/20/16 11:06 Nitroglycerin (Ntg) 0.4 mg Q5M X 3 DOSES PRN SL Prn Chest Pain 09/20/16 08:45 10/20/16 08:44 Ondansetron HCl (Zofran) 4 mg Q6H PRN IVP Nausea & Vomiting 09/20/16 08:45 10/20/16 08:44 Pantoprazole (Protonix) 40 mg DAILY IV 09/20/16 09:30 10/20/16 09:29 09/20/16 11:06 Polyethylene Glycol (Miralax) 17 gm HSPRN PRN ORAL Constipation 09/20/16 08:45 10/20/16 08:44 Sodium Chloride (Sodium Chloride 1000ml bag) 1,000 ml @ 150 mls/hr Q6H40M IV 09/20/16 07:30 10/20/16 07:29 09/20/16 08:05 Temazepam (Restoril) 15 mg HSPRN PRN ORAL Insomnia 09/20/16 08:45 09/27/16 08:44 Assessment/Plan Assessment/Plan ASSESSMENT ACUTE APPENDICITIS/retrocecal S/P LAP APPY FATTY LIVER LEUCOCYTOSIS postoperative pain recent hx of induced chemical PLAN OF CARE MS floor IVF empiric abx pain management OOB as tolerated IS while in bed monitor count trend LFT diet as tolerated a/emetic prn DVT prophylaxis case discussed and evaluated by supervising physician [facility]ector [facility] CenterSonam Noel NP Sep 20, 2016 12:57
[2016-09-20] MEDS: Piperacillin/Tazobactam 3.375 GM in D5W 110 ML IVPB SCH ×2 (14:47→22:10)
[2016-09-20] MEDS ORDERED: D5 1/2NS 1,000 ML IV SCH (17:40)
[2016-09-21] VITALS: BP 123/75
[2016-09-21 04:00] VITALS: BP 98/62
[2016-09-21] MEDS: Piperacillin/Tazobactam 3.375 GM in D5W 110 ML IVPB SCH (05:28)
[2016-09-21] MEDS: D5 1/2NS w/KCl 20mEq 1,000 ML IV SCH (06:35)
[2016-09-21 08:01] VITALS: BP 123/79
[2016-09-21 08:25] LABS: ALANINE AMINOTRANSFERASE 56 U/L (3-33); ALBUMIN/GLOBULIN RATIO 1.3 (1.0-2.7); AMYLASE 104 U/L (10-110); ANION GAP 14 (5-15); ASPARTATE AMINO TRANSFERASE 37 U/L (5-40); CALCIUM 8.8 mg/dL (8.6-10.2); CARBON DIOXIDE 22 mEQ/L (20-30); CHLORIDE 103 mEQ/L (98-107); CREATININE 0.8 mg/dL (0.5-0.9); GLOMERULAR FILTRATION RATE > 60 mL/min (>60); HEMOLYSIS 2; LIPASE 40 U/L (< 60); POTASSIUM 3.8 mEQ/L (3.4-4.9); SODIUM 139 mEQ/L (135-145); TOTAL PROTEIN 6.9 g/dL (6.6-8.7)
[2016-09-21 08:33] LABS: BASOPHILS % (AUTO) 0.9 % (0.0-2.0); EOSINOPHILS % (AUTO) 0.9 % (0.0-3.0); MEAN CORPUSCULAR HEMOGLOBIN 31.3 PG (27.0-31.0); MEAN CORPUSCULAR VOLUME 92 FL (80-99); MEAN PLATELET VOLUME 6.3 FL (6.5-10.1); MONOCYTES % (AUTO) 6.1 % (1.0-10.0); NEUTROPHILS % (AUTO) 68.1 % (45.0-75.0); PLATELET COUNT 256 K/UL (150-450); RED BLOOD COUNT 4.52 M/UL (4.20-5.40); RED CELL DISTRIBUTION WIDTH 11.8 % (11.6-14.8); WHITE BLOOD COUNT 10.3 K/UL (4.8-10.8)
[2016-09-21 08:41] LABS: BILIRUBIN,DIRECT 0.2 mg/dL (0.1-0.3)
[2016-09-21] MEDS: Pantoprazole Inj IV SCH (08:53)
[2016-09-21] MEDS: Heparin 5000 units/ml inj SUBQ SCH (08:54)
[2016-09-21] MEDS ORDERED: Tubing IV Secondary IV ONE (09:17)
--- NOTE | 2016-09-21 09:35 | Pulmonology Progress Note ---
Assessment/Plan Assessment/Plan ASSESSMENT ACUTE APPENDICITIS/retrocecal S/P LAP APPY FATTY LIVER LEUCOCYTOSIS postoperative pain recent hx of induced chemical PLAN OF CARE MS floor IVF empiric abx pain management OOB as tolerated IS while in bed ambulate leukocytosis resolved AST down to normal, ALT trending down tolerates FL diet, advance as er surgery a/emetic prn DVT prophylaxis surgery cleared for discharge dc IVF dc abx dc today fup with sx as outpatient case discussed and evaluated by supervising physician Subjective Allergies: Coded Allergies: No Known Allergies (Unverified , 09/19/16) Subjective leukocytosis resolved, afebrile on FL diet, tolerates voided Objective Last 24 Hour Vital Signs Date Time Temp Pulse Resp B/P Pulse Ox O2 Delivery O2 Flow Rate FiO2 09/21/16 08:01 97.7 80 19 123/79 97 Room Air 09/21/16 04:00 97.9 89 20 98/62 97 Room Air 09/21/16 00:00 99.3 96 20 123/75 95 Room Air 09/20/16 20:00 99.5 95 18 136/95 98 Room Air 09/20/16 16:00 98.6 100 20 130/82 95 Room Air 09/20/16 12:04 78 20 98 09/20/16 10:59 97.0 09/20/16 10:38 97.6 88 16 130/84 100 Room Air 09/20/16 10:30 85 18 131/83 98 Room Air 09/20/16 10:25 82 15 128/81 97 Room Air 09/20/16 10:15 88 18 125/75 96 Room Air 09/20/16 10:00 86 20 122/77 98 Room Air 09/20/16 09:45 81 18 105/65 100 Simple Mask 6.0 09/20/16 09:43 84 20 99 09/20/16 09:40 97.0 83 17 114/74 100 Simple Mask 6.0 Intake and Output 09/20/16 09/21/16 19:00 07:00 Intake Total 1090.0 ml 537.5 ml Balance 1090.0 ml 537.5 ml Intake Oral 320 ml IV Total 770.0 ml 537.5 ml # Voids 3 3 Objective General Appearance: WD/WN, no apparent distress, alert Lines, tubes and drains: peripheral HEENT: normocephalic, atraumatic, anicteric, mucous membranes moist Neck: non-tender, supple, normal inspection Respiratory/Chest: lungs clear, no respiratory distress, no accessory muscle use Cardiovascular/Chest: normal rate, regular rhythm Abdomen: normal bowel sounds, soft - 3 small surg incision with gauze, clean, no drainage, no edema Neurologic: no motor/sensory deficits, alert, oriented x 3, responsive Laboratory Tests 09/21/16 06:40: White Blood Count 10.3#, Red Blood Count 4.52, Hemoglobin 14.1, Hematocrit 41.6 , Mean Corpuscular Volume 92, Mean Corpuscular Hemoglobin 31.3H, Mean Corpuscular Hemoglobin Concent 34.0, Red Cell Distribution Width 11.8, Platelet Count 256, Mean Platelet Volume 6.3L, Neutrophils (%) (Auto) 68.1, Lymphocytes ( %) (Auto) 24.0, Monocytes (%) (Auto) 6.1, Eosinophils (%) (Auto) 0.9, Basophils (%) (Auto) 0.9, Activated Partial Thromboplast Time 29, Sodium Level 139, Potassium Level 3.8, Chloride Level 103, Carbon Dioxide Level 22, Anion Gap 14, Blood Urea Nitrogen 9, Creatinine 0.8, Estimat Glomerular Filtration Rate > 60, Glucose Level 97, Calcium Level 8.8, Total Bilirubin 1.2, Direct Bilirubin 0.2, Aspartate Amino Transf (AST/SGOT) 37, Alanine Aminotransferase (ALT/SGPT) 56H, Alkaline Phosphatase 89, Total Protein 6.9, Albumin 3.9, Globulin 3.0, Albumin/ Globulin Ratio 1.3, Amylase Level 104, Lipase 40 Current Medications Medications (Trade) Dose Ordered Sig/Marty Route PRN Reason Start Time Stop Time Status Last Admin Dose Admin Acetaminophen (Tylenol) 650 mg Q4H PRN ORAL fever 09/20/16 08:45 10/20/16 08:44 09/21/16 01:47 Al Hydroxide/Mg Hydroxide (Mylanta II) 30 ml Q6H PRN ORAL dyspepsia 09/20/16 08:45 10/20/16 08:44 Dextrose (Dextrose 50%) STAT PRN IV Hypoglycemia 09/20/16 08:45 10/20/16 08:44 Dextrose/ Electrolytes 1,000 ml @ 100 mls/hr Q10H IV 09/20/16 11:00 10/20/16 10:59 09/20/16 11:39 Diphenhydramine HCl (Benadryl) 25 mg Q6H PRN ORAL Itching/Pruritis 09/20/16 08:45 10/20/16 08:44 Heparin Sodium (Porcine) (Heparin 5000 units/ml) 5,000 units EVERY 12 HOURS SUBQ 09/20/16 09:30 10/20/16 09:29 09/21/16 08:54 Lorazepam 1 mg 1 mg EVERY 4 HOURS PRN IV agitation 09/20/16 08:45 09/27/16 08:44 Metoclopramide HCl (Reglan) 10 mg EVERY 6 HOURS PRN IVP servere nachemosea 09/20/16 08:45 10/20/16 08:44 Morphine Sulfate (Morphine Sulfate) 2 mg EVERY 4 HOURS PRN IVP severe Pain (Pain Scale 7-10) 09/20/16 08:45 09/27/16 08:44 09/20/16 20:22 Nitroglycerin (Ntg) 0.4 mg Q5M X 3 DOSES PRN SL Prn Chest Pain 09/20/16 08:45 10/20/16 08:44 Ondansetron HCl (Zofran) 4 mg Q6H PRN IVP Nausea & Vomiting 09/20/16 08:45 10/20/16 08:44 Pantoprazole (Protonix) 40 mg DAILY IV 09/20/16 09:30 10/20/16 09:29 09/21/16 08:53 Piperacillin Sod/ Tazobactam Sod/ Dextrose (Zosyn/D5W) 110 ml @ 27.5 mls/hr EVERY 8 HOURS IVPB 09/20/16 14:00 09/25/16 13:59 09/21/16 05:28 Polyethylene Glycol (Miralax) 17 gm HSPRN PRN ORAL Constipation 09/20/16 08:45 10/20/16 08:44 Temazepam (Restoril) 15 mg HSPRN PRN ORAL Insomnia 09/20/16 08:45 09/27/16 08:44 Sonam Young NP (Vanchtein) Sep 21, 2016 09:35
[2016-09-21] MEDS: Morphine Sulfate 2mg/ml Inj IVP PRN (11:27)
[2016-09-21 11:45] VITALS: BP 127/81
--- NOTE | 2016-09-21 13:16 | General Surgery Progress Note ---
General Surgery-Progress Note Subjective Procedure Performed laparoscopic appendectomy Symptoms: improved Objective Last 24 Hour Vital Signs Date Time Temp Pulse Resp B/P Pulse Ox O2 Delivery O2 Flow Rate FiO2 09/21/16 11:45 97.9 81 18 127/81 96 Room Air 09/21/16 08:01 97.7 80 19 123/79 97 Room Air 09/21/16 04:00 97.9 89 20 98/62 97 Room Air 09/21/16 00:00 99.3 96 20 123/75 95 Room Air 09/20/16 20:00 99.5 95 18 136/95 98 Room Air 09/20/16 16:00 98.6 100 20 130/82 95 Room Air I&O Intake and Output 09/20/16 09/21/16 19:00 07:00 Intake Total 1090.0 ml 537.5 ml Balance 1090.0 ml 537.5 ml Intake Oral 320 ml IV Total 770.0 ml 537.5 ml # Voids 3 3 Dressing: dry Wound: clean Drains: none Cardiovascular: RSR Respiratory: clear Abdomen: soft Extremities: no edema Laboratory Tests Test 09/21/16 06:40 White Blood Count 10.3 K/UL (4.8-10.8) # Red Blood Count 4.52 M/UL (4.20-5.40) Hemoglobin 14.1 G/DL (12.0-16.0) Hematocrit 41.6 % (37.0-47.0) Mean Corpuscular Volume 92 FL (80-99) Mean Corpuscular Hemoglobin 31.3 PG (27.0-31.0) H Mean Corpuscular Hemoglobin Concent 34.0 G/DL (32.0-36.0) Red Cell Distribution Width 11.8 % (11.6-14.8) Platelet Count 256 K/UL (150-450) Mean Platelet Volume 6.3 FL (6.5-10.1) L Neutrophils (%) (Auto) 68.1 % (45.0-75.0) Lymphocytes (%) (Auto) 24.0 % (20.0-45.0) Monocytes (%) (Auto) 6.1 % (1.0-10.0) Eosinophils (%) (Auto) 0.9 % (0.0-3.0) Basophils (%) (Auto) 0.9 % (0.0-2.0) Activated Partial Thromboplast Time 29 SEC (23-33) Sodium Level 139 mEQ/L (135-145) Potassium Level 3.8 mEQ/L (3.4-4.9) Chloride Level 103 mEQ/L (98-107) Carbon Dioxide Level 22 mEQ/L (20-30) Anion Gap 14 (5-15) Blood Urea Nitrogen 9 mg/dL (7-23) Creatinine 0.8 mg/dL (0.5-0.9) Estimat Glomerular Filtration Rate > 60 mL/min (>60) Glucose Level 97 mg/dL (74-106) Calcium Level 8.8 mg/dL (8.6-10.2) Total Bilirubin 1.2 mg/dL (0.0-1.2) Direct Bilirubin 0.2 mg/dL (0.1-0.3) Aspartate Amino Transf (AST/SGOT) 37 U/L (5-40) Alanine Aminotransferase (ALT/SGPT) 56 U/L (3-33) H Alkaline Phosphatase 89 U/L (35-104) Total Protein 6.9 g/dL (6.6-8.7) Albumin 3.9 g/dL (3.5-5.2) Globulin 3.0 g/dL Albumin/Globulin Ratio 1.3 (1.0-2.7) Amylase Level 104 U/L (10-110) Lipase 40 U/L (< 60) Assessment Post-op Diagnosis early appendicitis, liver swelling Additional Comments Satisfactory progress, tolerating full liquids, abdomen is soft Plan Additional Comments Will d/c antibiotics and IV fluids, can be discharged home today on a regular diet. Rx:Tylenol with codeine #3 disp: 30 . Can be discharged today, follow up in office 09-26-16. Mario Rucker MD Sep 21, 2016 13:16
[2016-09-21] MEDS ORDERED: ACETAMINOPHEN-1 EAC1 ORAL (13:31)
[2016-09-21 15:58] VITALS: BP 122/79
[2016-09-21] MEDS ORDERED: Tylenol #3 tab (300mg/30mg) ORAL PRN (17:15)
--- NOTE | 2016-09-22 09:37 | Diagnostic Imaging Report ---
Indication:Abdominal pain Technique: Grayscale and duplex Doppler imaging of the abdomen performed. Comparison: None Findings: The demonstrated part of the pancreas, gallbladder, aorta and IVC, both kidneys, spleen appear unremarkable. The liver is 20 cm in size and echogenic. There is no biliary ductal dilatation identified. Doppler evaluation of the main portal vein shows patency. There is no ascites. No hydronephrosis seen. Impression: Hepatomegaly with fatty infiltration..
--- NOTE | 2016-09-24 07:23 | Discharge Summary ---
Discharge Summary Hospital Course Date of Admission Sep 20, 2016 at 03:39 Date of Discharge Sep 21, 2016 at 19:03 Admitting Diagnosis Appendicitis. HPI Yuliana Andrade is a 26 year old female who was admitted on Sep 20, 2016 at 03: 39 for Appendicitis Hospital Course dc summary #[id number] Discharge Medications New Medications: Acetaminophen With Codeine (T#3) (Tylenol #3 Tab*) Y Tab 1 TAB ORAL Q4H PRN, #30 TAB Discharge Discharge Disposition Patient was discharged to Home (01) Discharge Diagnoses: Hector (Lolasmita),Sonam BANKS Sep 24, 2016 07:23
--- NOTE | 2016-09-24 08:00 | Discharge Summary 2 SIG ---
DATE OF ADMISSION: 09/20/2016 DATE OF DISCHARGE: 09/21/2016 REASON FOR ADMISSION: This is a 26-year-old female with no past medical history presented with complaint of epigastric abdominal pain for one day. Workup in the emergency room revealed that the patient had leukocytosis of 21.4, elevated AST and ALT and CT of the abdomen and pelvis revealed acute appendicitis and fatty liver. The patient was admitted for further management. ADMITTING DIAGNOSES: Include: 1. Acute appendicitis. 2. Fatty liver. 3. Leukocytosis. 4. Abdominal pain. HOSPITAL STAY: The patient was admitted. Surgery consult was requested immediately. The patient undergone subsequently laparoscopic appendectomy. The patient was on empiric antibiotics. Pain management provided. The patient was out of bed. The patient started on diet as tolerated. Antiemetic provided as needed. DVT prophylaxis provided. Next day, the patient able to tolerate diet. WBC down to 10.3. Liver enzymes, AST down to normal. ALT down from 92 to 56. The patient pain was controlled. The patient able to void freely. Surgeon cleared the patient for discharge. DISCHARGE DIAGNOSES: Include: 1. Acute appendicitis/retrocecal. 2. Status post laparoscopic appendectomy. 3. Fatty liver. 4. Leukocytosis, resolved. 5. Postoperative pain. 6. Recent history of reduce chemical . DISCHARGE MEDICATION: The patient was discharged on Tylenol No. 3 as needed for pain. DISCHARGE INSTRUCTIONS: The patient to follow up with the surgeon as directed by surgeon. The patient discharged home. Alexandra Baig M.D. I have been assigned to dictate discharge summary on this account and I was not involved in the patient's management. Sonam Young (vanchtein) N.PDona DR: Adilia JOB#: [id number] CC:
== END 2016-09-21 19:03 | disposition home or self-care (01) | DRG 225 ==
LOC: EDSEX 22:26 → EMR 22:43 → EDBEDREQ 09-20 03:26 → 4E 09-20 03:39 → EDBEDREQ 09-20 03:40
PROC: 0DTJ4ZZ Resection of Appendix, Percutaneous Endoscopic Approach (ICD-10-PCS; principal; 2016-09-20 08:00)
DX: K35.89 Other acute appendicitis (principal); K76.0 Fatty (change of) liver, not elsewhere classified; Z98.890 Other specified postprocedural states
CPT/HCPCS: 36415; 74177; 76700; 80053; 81003; 81025; 82150; 82248; 83690; 84702; 85007; 85025; 85610; 85730; J2250; J2405; J2710

== ENCOUNTER 2019-06-03 20:04 | Emergency (ER) | payer OTHER ==
[~2019-06-03] VITALS: Ht 162.6 cm; Wt 90.7 kg
[~2019-06-03 20:04] MED LIST: ACETAMINOPHEN-1 EAC1 ORAL; NKM
--- NOTE | 2019-06-03 20:23 | NUR ---
ED Nurse Note: Pt walked into ED w/ c/o urinary burning and cramps for 10 days. Pt is alert and orientedx4, ambulatory. Pt denies other discharge, swelling or redness in perineal area. Pt thinks it might be UTI from her symptoms.
[2019-06-03 20:30] VITALS: BP 142/86
[2019-06-03] MEDS ORDERED: Lidocaine 1% MPF 10mg/ml 5ml INJ ONE (20:30)
[2019-06-03] MEDS ORDERED: Azithromycin 250mg tab ORAL ONE (20:30)
--- NOTE | 2019-06-03 20:38 | Emergency Room Report ---
History of Present Illness General Chief Complaint: Female Urogenital Problems Source: Patient Present Illness HPI 28-year-old female with no significant past medical history here complaining of 4 hours of burning sensation with urinating and frequency. Complains of hematuria and spotting. Reports her last menstrual period was 2 weeks ago does not know if she is or not she is sexually active without protection or control. Reports that was last sexually active yesterday. Denies any vaginal discharge at this time. Agrees to have prophylactic treatment for chlamydia and gonorrhea. Denies any fever and chills, recent travel, coming contact of travel, nausea or vomiting. Has been taking 1 pill of Pyridium as it was given to her by her mom and reports that it did not help. COVID-19 risk:Travel to affect: No Has patient experienced amato: No Allergies: Coded Allergies: No Known Allergies (Unverified , 09/19/16) Patient History Past Medical History: see triage record Past Surgical History: none Pertinent Family History: none Last Menstrual Period: 05-25-2019 Now: No Immunizations: UTD Reviewed Nursing Documentation: PMH: Agreed; PSxH: Agreed Nursing Documentation-PMH Hx Cardiac Problems: No Hx Cancer: No Hx Gastrointestinal Problems: No Hx Neurological Problems: No Review of Systems All Other Systems: negative except mentioned in HPI Physical Exam Vital Signs Date Time Temp Pulse Resp B/P (MAP) Pulse Ox O2 Delivery O2 Flow Rate FiO2 06/03/19 20:09 98.6 94 16 145/88 (107) 97 Room Air Sp02 EP Interpretation: reviewed, normal General Appearance: no apparent distress, alert, GCS 15, non-toxic Head: normocephalic, atraumatic Eyes: bilateral eye normal inspection, bilateral eye PERRL ENT: hearing grossly normal, normal pharynx, no angioedema, normal voice Neck: full range of motion, supple, no meningismus, supple/symm/no masses Respiratory: chest non-tender, lungs clear, normal breath sounds, no rhonchi, no wheezing, speaking full sentences Cardiovascular #1: regular rate, rhythm, no edema, no murmur, normal capillary refill Gastrointestinal: normal bowel sounds, non tender, soft, non-distended, no guarding, no rebound Rectal: deferred Genitourinary: no CVA tenderness Musculoskeletal: back normal, normal range of motion, digits/nails normal Neurologic: alert, motor strength/tone normal, oriented x3, sensory intact, responsive, speech normal Psychiatric: judgement/insight normal, memory normal, mood/affect normal, no suicidal/homicidal ideation Skin: no rash Lymphatic: no adenopathy Medical Decision Making THOMAS Attestation All diagnoses and treatment plans were reviewed and discussed with my supervising physician Dr. Lee Diagnostic Impression: Primary Impression: UTI (urinary tract infection) Additional Impression: Possible exposure to STD ER Course 28-year-old female with no significant past medical history here complaining of 4 hours of burning sensation with urinating and frequency. Complains of hematuria and spotting. Reports her last menstrual period was 2 weeks ago does not know if she is or not she is sexually active without protection or control. Reports that was last sexually active yesterday. Denies any vaginal discharge at this time. Agrees to have prophylactic treatment for chlamydia and gonorrhea. Denies any fever and chills, recent travel, coming contact of travel, nausea or vomiting. Has been taking 1 pill of Pyridium as it was given to her by her mom and reports that it did not help. Ddx considered but are not limited to: UTI, pyelonephritis, urinary incontinence , prolapsed bladder, chlamydia, gonorrhea Vital signs: are WNL, pt. is afebrile H&PE are most consistent with: UTI, possible STD exposure ORDERS: UA, urine cx, urine test, Pyridium, Macrobid ED INTERVENTIONS: Rocephin 250 mg IM, azithromycin p.o., Motrin DISCHARGE: At this time pt. is stable for d/c to home. Will provide printed patient care instructions, and any necessary prescriptions. Care plan and follow up instructions have been discussed with the patient prior to discharge. Increase oral hydration, use control and condoms for protection, worsening symptoms return to emergency room Last Vital Signs Date Time Temp Pulse Resp B/P (MAP) Pulse Ox O2 Delivery O2 Flow Rate FiO2 06/03/19 20:09 98.6 94 16 145/88 (107) 97 Room Air Disposition: HOME, SELF-CARE Condition: Stable Patient Instructions: Urinary Tract Infection Additional Instructions: Increase oral hydration, use control and condoms for protection, worsening symptoms return to emergency room Kee Love Jun 03, 2019 20:38
[2019-06-03 20:50] LABS: APPEARANCE,URINE CLOUDY; BILIRUBIN, URINE 2+ (NEGATIVE); COLOR,URINE RED; GLUCOSE, URINE (UA) NEGATIVE (NEGATIVE); KETONES,URINE NEGATIVE (NEGATIVE); LEUKOCYTE ESTERASE ,URINE 3+ (NEGATIVE); NITRITE,URINE POSITIVE (NEGATIVE); PH,URINE 8 (4.5-8.0); PROTEIN,URINE 4+ (NEGATIVE); UROBILINOGEN,URINE NORMAL MG/DL (0.0-1.0)
[2019-06-03] MEDS ORDERED: NITROFURANTOIN100 M2 ORAL (20:52)
[2019-06-03] MEDS ORDERED: PHENAZOPYRIDIN200 MG ORAL (20:52)
[2019-06-03 21:14] VITALS: BP 138/86
--- NOTE | 2019-06-03 21:15 | NUR ---
ER DISCHARGE NOTE: Patient is cleared to be discharged per ERMD, pt is aox4, on room air, with stable vital signs. pt was given dc and prescription instructions, pt was able to verbalize understanding, pt id band removed. pt is able to ambulate with steady gait. pt took all belongings. Pt educated regarding UTI and protected sex.
== END 2019-06-03 21:15 | disposition home or self-care (01) ==
LOC: EMR 20:20
DX: N39.0 Urinary tract infection, site not specified (principal); R31.9 Hematuria, unspecified
CPT/HCPCS: 81003; 81025; 87086; 96372; J0696; Q0144; Z7502; 99283